=== PATIENT | male | born 1990 | race Caucasian/White ===

== ENCOUNTER 2020-01-14 00:15 | Emergency (ER) | payer OTHER, SELFPAY ==
[2020-01-14 00:18] VITALS: BP 128/75; PULSE 89; RESP 18; TEMP 36.2; O2SAT 96; BMI 38.6
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
[2020-01-14] MEDS: Acetaminophen 325 MG TABLET 975 MG PO (02:23)
[2020-01-14] MEDS: Lidocaine 4 % Patch ADH..PATCH 1 PATCH TRANSDERMA (02:24)
[2020-01-14] MEDS: Ketorolac Tromethamine 15 MG/ML VIAL IM (02:27)
--- NOTE | 2020-01-14 02:29 | PC.NURSE ---
0214: , this ticket writer and staff emergency medicine medical director at bedside. Pt reports back pain that won't let me sleep. it started today and got worse. I only had pain like this with my surgery on my leg. Can you given me something to help me sleep?. Pt educated on normal course healing. Pt denied urinary symptoms, recent trauma or any allergies. Plan is to treat patient with back strain medication. (Lido patch, im torodol, and po tyenol.) patient is in agreement with education. Pt a and o x 4. skin p/w/d. mentating well. Speech is clear and thought process is organized.
[2020-01-14 02:37] VITALS: BP 110/66; PULSE 73; RESP 18; TEMP 36.8; O2SAT 98
== END 2020-01-14 02:55 | disposition home or self-care (01) ==
PROVIDERS: Emergency Provider Student in an Organized Health Care Education/Training Program
DX: M54.5 Low back pain (principal)
CPT/HCPCS: 96372; 99284; J1885

== ENCOUNTER 2020-01-29 14:13 | Outpatient (REF) | payer OTHER, SELFPAY | END 2020-01-29 14:14 | disposition home or self-care (01) | LOC: HO.LAB 14:13 | PROVIDERS: Visit Provider Internal Medicine | DX: Z20.828 Contact with and (suspected) exposure to other viral communicable diseases (principal) | CPT/HCPCS: C9803; U0003 ==

== ENCOUNTER 2020-10-04 02:14 | Emergency (ER) | payer OTHER, SELFPAY ==
[2020-10-04 02:46] VITALS: BP 137/81; PULSE 69; RESP 16; TEMP 35.8; O2SAT 98; BMI 28.7
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
== END 2020-10-04 04:42 | disposition home or self-care (01) ==
PROVIDERS: Emergency Provider Emergency Medicine
DX: D17.0 Benign lipomatous neoplasm of skin and subcutaneous tissue of head, face and neck (principal); Z79.899 Other long term (current) drug therapy
CPT/HCPCS: 99283

== ENCOUNTER 2020-11-20 21:21 | Inpatient (IN) | payer OTHER, SELFPAY ==
[2020-11-20 21:30] VITALS: BP 142/78; PULSE 78; RESP 17; TEMP 36.9; O2SAT 98; BMI 30.4
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
[2020-11-20 22:02] LABS: Appearance Urine CLEAR; Color Urine STRAW; Glucose Urine UA NEG (NEG); Leukocyte Esterase Urine NEG (NEG); Nitrite Urine NEG (NEG); PH 7.5 (5.0-8.0); Specific Gravity - Urine 1.015 (1.005-1.025); Urine Blood NEG (NEG); Urine Ketones NEG (NEG); Urine Protein NEG (NEG-TRACE)
[2020-11-20 22:12] LABS: COVID-19 Test Negative (Negative)
[2020-11-20 22:18] LABS: Amphetamine Screen Urine Not Detected (Not Detect); Barbiturates, Urine Not Detected (Not Detect); Benzodiazepines Screen Urine Not Detected (Not Detect); Cannabinoid Screen Urine Not Detected (Not Detect); Cocaine Screen Urine Not Detected (Not Detect); Fentanyl, urine Not Detected (Not Detect); Opiate Screen Urine Not Detected (Not Detect); Phencyclidine Screen Urine Not Detected (Not Detect)
[2020-11-20 22:26] LABS: MANUAL DIFF FLAG NO
[2020-11-20 22:27] LABS: Basophils Percent Auto 0.5 % (0-2); Eosinophils Percent Auto 0.5 % (0-4); Hematocrit 41.1 % (42-52); Hemoglobin 13.4 g/dl (14.0-18.0); Imm Gran Abs Auto 0.02 X10*3/uL (0.00-0.03); Imm Gran Pct Auto 0.3 % (0.0-0.4); Lymphocytes Percent Auto 27.2 % (20-40); Mean Corpuscular HGB Conc 32.6 g/dl (31.0-36.0); Mean Corpuscular Hemoglobin 29.3 pg (27.0-33.0); Mean Corpuscular Volume 89.7 fL (80-98); Monocytes Absolute Auto 0.3 X10*3/uL (0.1-1.2); Monocytes Percent Auto 4.6 % (2-11); Neutrophils Percent Auto 66.9 % (45-73); Platelet Count 251 X10*3/uL (160-400); Red Blood Count 4.58 X10*6/uL (4.60-5.80); Red Cell Distribution Width 13.7 % (11.0-16.0); White Blood Count 7.5 X10*3/uL (4.8-10.8)
[2020-11-20] MEDS: Divalproex Sodium 500 MG TABLET.DR 1500 MG PO (22:28)
[2020-11-20] MEDS: OLANZapine 10 MG TABLET PO (22:28)
[2020-11-20 22:43] LABS: Anion Gap 14 (12-20); Blood Urea Nitrogen 20 mg/dL (9-16); Calcium 9.2 mg/dL (8.4-10.2); Carbon Dioxide 26 mmol/L (22-29); Chloride 104 mmol/L (96-108); Creatinine Clr Calc Pharmacy 89.9; Estimated Glomerular Filt Rate > 60; Glucose Random 152 mg/dL (60-115); Potassium 4.3 mmol/L (3.3-5.1); Sodium 140 mmol/L (135-145)
[2020-11-20 22:54] LABS: Valproate < 2.0 mcg/mL (50.0-100.0)
[2020-11-21 02:22] VITALS: BP 127/84; PULSE 75; RESP 17; TEMP 36.4; O2SAT 100
--- NOTE | 2020-11-21 05:34 | PC.NURSE ---
Patient slept through the night, no distress observed/reported, VSS, behavior pleasant and appropriate, medication compliant, patient was seen by N, disposition section 12 inpatient bed search, appetite good, elimination intact, VSS, will continue to monitor.
--- NOTE | 2020-11-21 07:04 | PC.NURSE ---
patient appears to remain at rest at present, breaths are even and unlabored, patient appears in no distress
[2020-11-21 09:12] VITALS: BP 133/95; PULSE 85; RESP 16; TEMP 36.9; O2SAT 100
[2020-11-21] MEDS: OLANZapine 10 MG TABLET PO ×2 (10:41→20:04)
--- NOTE | 2020-11-21 10:56 | PC.NURSE ---
patient wakes and is singing to self in room
[2020-11-21] MEDS: Divalproex Sodium 500 MG TABLET.DR 1500 MG PO (20:04)
[2020-11-21 22:59] VITALS: BP 105/53; PULSE 72; RESP 18; TEMP 36.6; O2SAT 95
[2020-11-21 23:46] VITALS: BP 140/83; PULSE 66; RESP 18; TEMP 36.2; O2SAT 100
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
[2020-11-22 07:05] VITALS: BP 132/66; PULSE 69; RESP 18; TEMP 36.4; O2SAT 100
[2020-11-22] MEDS: OLANZapine 10 MG TABLET PO ×2 (09:04→20:37)
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
[2020-11-22] MEDS: Divalproex Sodium 500 MG TABLET.DR 1500 MG PO (20:37)
[2020-11-22 21:04] VITALS: BP 138/68; PULSE 102; TEMP 36.5; O2SAT 97
[2020-11-23 06:00] VITALS: BP 136/88; PULSE 97; RESP 20; TEMP 36.3; O2SAT 99
[2020-11-23 08:14] LABS: Ammonia 27 umol/L (13-55)
[2020-11-23 08:15] LABS: Estimated Average Glucose 105 mg/dL; Hemoglobin A1c % 5.3 %
[2020-11-23] MEDS: OLANZapine 10 MG TABLET PO ×2 (08:26→19:57)
[2020-11-23 08:29] LABS: Cholesterol 174 mg/dL; HDL Cholesterol 31 mg/dL; LDL Cholesterol Calculated 104 mg/dl; Triglycerides 195 mg/dL
[2020-11-23 08:31] LABS: Alanine Aminotransferase 20 U/L (0-40); Albumin Level 4.4 g/dL (3.5-5.0); Alkaline Phosphatase 86 U/L (39-117); Aspartate Amino Transferase 14 U/L (5-37); Bilirubin Direct 0.5 mg/dL (0.0-0.5); Bilirubin Total 1.9 mg/dL (0.0-1.0); Total Protein 7.5 g/dL (6.5-8.0)
[2020-11-23 09:21] LABS: Valproate 80.7 mcg/mL (50.0-100.0)
--- NOTE | 2020-11-23 12:27 | PC.NURSE ---
Pt signed a 3 day notice, up on 11/26
[2020-11-23] MEDS: Divalproex Sodium 500 MG TABLET.DR 1500 MG PO (19:57)
--- NOTE | 2020-11-23 21:26 | P.PNPSI_ITS ---
Subjective Subjective Date of Service: 11/23/20 Reason For Visit: Psychosis Interim History: seen with YUMIKO and c web developer pt reports good mood and denies SI/HI and AVH. 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 Some more hxi noted as pt reports all kinds of childhood trauma. pt did not want to discuss further. Says medications are working well Mental Status Exam Mental Status Exam Narrative: Patient Appearance:?Appropriate Patient Orientation:?Person, Place and Time Level of Consciousness:?Awake and Appropriate Patient Behavior:?Appropriate, Cooperative, Confused and Good Eye Contact Mood Description:?Calm Affect Description:?Calm Ability to Follow Directions:?Fair Speech Pattern:?Appropriate and Spontaneous Speech Hallucinations:?None (denies) but appears internally preoccupied Delusions:?Paranoid Ideation Thought Process:?Goal Oriented Thought Content:?positive for Preoccupation (with delusional thoughts; denies SI; denies HI) Judgement and Insight:?impaired Diagnostics Vital Signs (24Hr): Vital Signs - 24 hr 11/23/20 06:00 Temperature 97.4 F Pulse Rate 97 Respiratory Rate 20 Blood Pressure 136/88 Pulse Oximetry 99 Body Mass Index 30.4 Labs Results: 11/20/20 22:22 11/20/20 22:22 Labs: Laboratory Results - last 48 hr 11/23/20 11/23/20 11/23/20 07:54 07:54 07:54 Estimat Average Glucose 105 Hemoglobin A1c % 5.3 Total Bilirubin 1.9 H Direct Bilirubin 0.5 AST 14 ALT 20 Alkaline Phosphatase 86 Ammonia Total Protein 7.5 Albumin 4.4 Triglycerides 195 Cholesterol 174 LDL Cholesterol, Calc 104 HDL Cholesterol 31 Valproic Acid 80.7 11/23/20 07:54 Estimat Average Glucose Hemoglobin A1c % Total Bilirubin Direct Bilirubin AST ALT Alkaline Phosphatase Ammonia 27 Total Protein Albumin Triglycerides Cholesterol LDL Cholesterol, Calc HDL Cholesterol Valproic Acid Medications Medications Current Medications Acetaminophen (Acetaminophen 325 Mg Tablet) 650 mg PO Q6H PRN PRN Reason: Headache/Pain Mild Scale (1-3) Al Hydroxide/Mg Hydroxide (Magnesium Hydrox/Alum Hydrox 30 Ml Oral.Susp) 30 ml PO Q6H PRN PRN Reason: Heartburn/Nausea Divalproex Sodium (Divalproex Sodium 500 Mg Tablet.Dr) 1,500 mg PO BEDTIME [facility] Last Admin: 11/23/20 19:57 Dose: 1,500 mg Documented by: Hydroxyzine HCl (Hydroxyzine Hcl 25 Mg Tablet) 25 mg PO Q6H PRN PRN Reason: Anxiety Lorazepam (Lorazepam 1 Mg Tablet) 2 mg PO Q4H PRN PRN Reason: agitation Magnesium Hydroxide (Milk Of Magnesia 30 Ml Oral.Susp) 30 ml PO DAILY PRN PRN Reason: Constipation Nicotine Polacrilex (Nicotine Polacrilex 2 Mg Gum) 4 mg BUCCAL Q2H PRN PRN Reason: Nicotine Cravings Olanzapine (Olanzapine 10 Mg Tablet) 10 mg PO BID [facility] Last Admin: 11/23/20 19:57 Dose: 10 mg Documented by: Olanzapine (Olanzapine 5 Mg Tablet) 5 mg PO Q4H PRN PRN Reason: agitation/psychosis Trazodone HCl (Trazodone Hcl 50 Mg Tablet) 50 mg PO BEDTIME PRN PRN Reason: Insomnia Allergies Allergies Allergy/AdvReac Type Severity Reaction Status Date / Time haloperidol [From HALDOL] AdvReac Severe Dystonia Verified 01/14/20 00:29 Assessment & Plan Assessment & Plan (1) Schizophrenia, chronic condition: Status: Chronic Code(s): F20.9 - Schizophrenia, unspecified (2) TBI (traumatic brain injury): Status: Suspected Code(s): S06.9X9A - Unspecified intracranial injury with loss of consciousness of unspecified duration, initial encounter Assessment and Plan: IMPRESSION: pt is a 30 yo male with hx of schizophrenia and TBI, who lives with his mother and presents after she called 911 for patients worsening psychotic symptoms in face of going off medications. -currently delusional; denies AH but appears internally preoccupied -will restart home medications as depakote level indicates has not been taking pt calm but delusional; crisis note reports agitation directed at mother; will get collateral to determine baseline plan: cv q15 min continue home meds lfts: wnl depakote level:therapeutic mother for collateral Greater than 50% of the session was spent on counseling and/or coordination of care Reason for contiued inpatient stay Substantial Risk for: med/psych decompensation
[2020-11-24 06:00] VITALS: BP 136/73; PULSE 98; RESP 16; TEMP 35.8; O2SAT 100
[2020-11-24] MEDS: OLANZapine 10 MG TABLET PO ×2 (08:48→20:15)
--- NOTE | 2020-11-24 13:38 | P.PNPSI_ITS ---
Subjective Subjective Date of Service: 11/24/20 Reason For Visit: Psychosis Subjective Notes: 3 Day Interim History: Patient reports that he is in a good mood, eating and sleeping well and denies any SI or HI saying only wants to was help people. He also continues to deny auditory hallucinations. Electron Gun Assembler probed some more of the potential reasons for his admissions and that his mother reported he was agitated toward her. Patient agreed that it is true that he got a little angry and broke some stuff, papers and books. Patient later retracted this and saying that that is what he does when he gets angry, but that this did not happen in the previous weeks. Patient gave fiction and nonfiction writer prose permission to talk to his mother Latosha and gave the phone number [phone] (gave verbal permission in front of 2 other witnesses). Mental Status Exam Mental Status Exam Narrative: Patient Appearance:?Appropriate Patient Orientation:?Person, Place and Time Level of Consciousness:?Awake and Appropriate Patient Behavior:?Appropriate, Cooperative and Good Eye Contact Mood Description:?Calm Affect Description:?Calm Ability to Follow Directions:?Fair Speech Pattern:?Appropriate and Spontaneous Speech Hallucinations:?None (denies) but appears internally preoccupied Delusions:?Paranoid Ideation Thought Process:?Goal Oriented Thought Content:?positive for Preoccupation (with delusional thoughts; denies SI; denies HI) Judgment and Insight:?impaired Diagnostics Vital Signs (24Hr): Vital Signs - 24 hr 11/24/20 06:00 Temperature 96.4 F L Pulse Rate 98 Respiratory Rate 16 Blood Pressure 136/73 Pulse Oximetry 100 Body Mass Index 30.4 Labs Results: 11/20/20 22:22 11/20/20 22:22 Labs: Laboratory Results - last 48 hr 11/23/20 11/23/20 11/23/20 07:54 07:54 07:54 Estimat Average Glucose 105 Hemoglobin A1c % 5.3 Total Bilirubin 1.9 H Direct Bilirubin 0.5 AST 14 ALT 20 Alkaline Phosphatase 86 Ammonia Total Protein 7.5 Albumin 4.4 Triglycerides 195 Cholesterol 174 LDL Cholesterol, Calc 104 HDL Cholesterol 31 Valproic Acid 80.7 11/23/20 07:54 Estimat Average Glucose Hemoglobin A1c % Total Bilirubin Direct Bilirubin AST ALT Alkaline Phosphatase Ammonia 27 Total Protein Albumin Triglycerides Cholesterol LDL Cholesterol, Calc HDL Cholesterol Valproic Acid Medications Medications Current Medications Acetaminophen (Acetaminophen 325 Mg Tablet) 650 mg PO Q6H PRN PRN Reason: Headache/Pain Mild Scale (1-3) Al Hydroxide/Mg Hydroxide (Magnesium Hydrox/Alum Hydrox 30 Ml Oral.Susp) 30 ml PO Q6H PRN PRN Reason: Heartburn/Nausea Divalproex Sodium (Divalproex Sodium 500 Mg Tablet.) 1,500 mg PO BEDTIME [facility] Last Admin: 11/23/20 19:57 Dose: 1,500 mg Documented by: Hydroxyzine HCl (Hydroxyzine Hcl 25 Mg Tablet) 25 mg PO Q6H PRN PRN Reason: Anxiety Lorazepam (Lorazepam 1 Mg Tablet) 2 mg PO Q4H PRN PRN Reason: agitation Magnesium Hydroxide (Milk Of Magnesia 30 Ml Oral.Susp) 30 ml PO DAILY PRN PRN Reason: Constipation Nicotine Polacrilex (Nicotine Polacrilex 2 Mg Gum) 4 mg BUCCAL Q2H PRN PRN Reason: Nicotine Cravings Olanzapine (Olanzapine 10 Mg Tablet) 10 mg PO BID [facility] Last Admin: 11/24/20 08:48 Dose: 10 mg Documented by: Olanzapine (Olanzapine 5 Mg Tablet) 5 mg PO Q4H PRN PRN Reason: agitation/psychosis Trazodone HCl (Trazodone Hcl 50 Mg Tablet) 50 mg PO BEDTIME PRN PRN Reason: Insomnia Allergies Allergies Allergy/AdvReac Type Severity Reaction Status Date / Time haloperidol [From HALDOL] AdvReac Severe Dystonia Verified 01/14/20 00:29 Assessment & Plan Assessment & Plan (1) Schizophrenia, chronic condition: Status: Chronic Code(s): F20.9 - Schizophrenia, unspecified (2) TBI (traumatic brain injury): Status: Suspected Code(s): S06.9X9A - Unspecified intracranial injury with loss of consciousness of unspecified duration, initial encounter Assessment and Plan: IMPRESSION: pt is a 30 yo male with hx of schizophrenia and TBI, who lives with his mother and presents after she called 911 for patients worsening psychotic symptoms in face of going off medications. -currently delusional; denies AH but appears internally preoccupied -will restart home medications as depakote level indicates has not been taking pt calm but delusional; crisis note reports agitation directed at mother; will get collateral to determine baseline plan: 3 day notice due 11/26 q15 min continue home meds lfts: wnl depakote level:therapeutic mother for collateral Greater than 50% of the session was spent on counseling and/or coordination of care Reason for contiued inpatient stay Substantial Risk for: med/psych decompensation
[2020-11-24 16:35] VITALS: BP 134/78; PULSE 94; TEMP 36.8
[2020-11-24] MEDS: Divalproex Sodium 500 MG TABLET.DR 1500 MG PO (20:15)
[2020-11-25 06:00] VITALS: BP 132/84; PULSE 99; RESP 16; TEMP 36.3; O2SAT 97
[2020-11-25] MEDS: OLANZapine 10 MG TABLET PO ×2 (09:03→21:10)
--- NOTE | 2020-11-25 11:11 | P.PNPSI_ITS ---
Subjective Subjective Date of Service: 11/25/20 Reason For Visit: Psychosis Interim History: pt reports good mood and looking forward to discharge tomorrow (3 day notice due 11/26). He denies SI/HI or any AVH. Pt reiterates he is only focused on helping people. 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 One invention is a wallet, to clip all things in it. -no longer worried that his mother will taint his food and is now skeptical that she was doing it in first place, thinking he may have accidentally blamed her. -aligner typewriter asked about past delusional thoughts expressed at other admissions, specifically about space travel to which pt said everything is based on numbers...every thing in the universe is based on numbers... He denies anything about space travel but says he's studied and knows about different planets and facts about them (accurately names some). SW talked to patients mother who says she has no fears for her safety from patient or any concerns that he'd hurt himself. He was off his meds and blaming her for breaking up with his girlfriend; since off his meds, she wanted to make sure he got help before his mood escalated. She says if he's back on his meds he is fine to come home this week. Mental Status Exam Mental Status Exam Narrative: Patient Appearance:?Appropriate Patient Orientation:?Person, Place and Time Level of Consciousness:?Awake and Appropriate Patient Behavior:?Appropriate, Cooperative and Good Eye Contact Mood Description:? good Affect Description:?Calm Ability to Follow Directions:?Fair Speech Pattern:?Appropriate and Spontaneous Speech Hallucinations:?None (denies) but appears internally preoccupied Delusions:?some Paranoid Ideations Thought Process:?Goal Oriented Thought Content:? on helping people, getting a someday; denies SI; denies HI Judgment and Insight:?impaired but appears to be at baseline Diagnostics Vital Signs (24Hr): Vital Signs - 24 hr 11/24/20 16:35 11/25/20 06:00 Temperature 98.2 F 97.4 F Pulse Rate 94 99 Respiratory Rate 16 Blood Pressure 134/78 132/84 Pulse Oximetry 97 Body Mass Index 30.4 Labs Results: 11/20/20 22:22 11/20/20 22:22 Medications Medications Current Medications Acetaminophen (Acetaminophen 325 Mg Tablet) 650 mg PO Q6H PRN PRN Reason: Headache/Pain Mild Scale (1-3) Al Hydroxide/Mg Hydroxide (Magnesium Hydrox/Alum Hydrox 30 Ml Oral.Susp) 30 ml PO Q6H PRN PRN Reason: Heartburn/Nausea Divalproex Sodium (Divalproex Sodium 500 Mg Tablet.) 1,500 mg PO BEDTIME [facility] Last Admin: 11/24/20 20:15 Dose: 1,500 mg Documented by: Hydroxyzine HCl (Hydroxyzine Hcl 25 Mg Tablet) 25 mg PO Q6H PRN PRN Reason: Anxiety Lorazepam (Lorazepam 1 Mg Tablet) 2 mg PO Q4H PRN PRN Reason: agitation Magnesium Hydroxide (Milk Of Magnesia 30 Ml Oral.Susp) 30 ml PO DAILY PRN PRN Reason: Constipation Nicotine Polacrilex (Nicotine Polacrilex 2 Mg Gum) 4 mg BUCCAL Q2H PRN PRN Reason: Nicotine Cravings Olanzapine (Olanzapine 10 Mg Tablet) 10 mg PO BID [facility] Last Admin: 11/25/20 09:03 Dose: 10 mg Documented by: Olanzapine (Olanzapine 5 Mg Tablet) 5 mg PO Q4H PRN PRN Reason: agitation/psychosis Trazodone HCl (Trazodone Hcl 50 Mg Tablet) 50 mg PO BEDTIME PRN PRN Reason: Insomnia Allergies Allergies Allergy/AdvReac Type Severity Reaction Status Date / Time haloperidol [From HALDOL] AdvReac Severe Dystonia Verified 01/14/20 00:29 Assessment & Plan Assessment & Plan (1) Schizophrenia, chronic condition: Status: Chronic Code(s): F20.9 - Schizophrenia, unspecified (2) TBI (traumatic brain injury): Status: Suspected Code(s): S06.9X9A - Unspecified intracranial injury with loss of consciousness of unspeci fied duration, initial encounter Assessment and Plan: IMPRESSION: pt is a 30 yo male with hx of schizophrenia and TBI, who lives with his mother and presents after she called 911 for patients worsening psychotic symptoms in face of going off medications. -currently delusional; denies AH but appears internally preoccupied -will restart home medications as depakote level indicates has not been taking pt calm but delusional; crisis note reports agitation directed at mother; will get collateral to determine baseline -collateral from mother obtained who says patient is back to baseline and fine to come home; she denies he is at any risk for hurting others or himself. She says once back on his medications he can return home. Pt has remained calm, pleasant with reported good mood and w/out any SI/HI or AVH. He is no longer worried that his mother will put hair in food. It is likely that he still has some paranoid thinking, but this appears to be part of his baseline presentations. pt is not in imminent risk of harm to self or others and does not meet criteria for involuntary commitment. He outpt services already established and is returning to his supportive mother with whom he lives. He also is now signed up to make application for [facility] and [facility] services plan: 3 day notice due 11/26 will proceed with discharge. q15 min continue home meds lfts: wnl depakote level:therapeutic Greater than 50% of the session was spent on counseling and/or coordination of care Reason for contiued inpatient stay Substantial Risk for: stable for discharge
--- NOTE | 2020-11-25 11:31 | PM.PSYDC ---
DS: Providers Provider Date of Service: 11/26/20 Date of admission: 11/21/20 23:23 Date of discharge: 11/26/20 Primary care physician: Unknown Physician Attending physician on admission: Tc Maldonado Attending physician on discharge: Tc Maldonado DS: Diagnosis Discharge Diagnosis (1) Schizophrenia, chronic condition: Status: Chronic (2) TBI (traumatic brain injury): Status: Suspected DS: Medications Discharge Medications Home Medications: Home Medications Medication Instructions Recorded Confirmed divalproex 500 mg tablet,delayed 3 tab PO BEDTIME 11/20/20 11/20/20 release olanzapine 10 mg tablet 1 tab PO BID 11/20/20 11/20/20 Mental Status Exam Mental Status Exam Narrative: Patient Appearance:?Appropriate Patient Orientation:?Person, Place and Time Level of Consciousness:?Awake and Appropriate Patient Behavior:?Appropriate, Cooperative and Good Eye Contact Mood Description:? good Affect Description:?Calm Ability to Follow Directions:?Fair Speech Pattern:?Appropriate and Spontaneous Speech Hallucinations:?None (denies) but appears internally preoccupied Delusions:?none expressed Thought Process:?Goal Oriented Thought Content:? on helping people, going home; denies SI; denies HI Judgment and Insight: adequate; appears to be at baseline Data Data Completed and Pending Completed studies during hospitalization [Text1]: 11/20/20 11/20/20 11/20/20 21:50 21:50 21:50 WBC RBC Hgb Hct MCV MCH MCHC RDW Plt Count MPV Immature Gran % (Auto) Neut % (Auto) Lymph % (Auto) [place] % (Auto) Eos % (Auto) Baso % (Auto) Lymph # (Auto) [place] # (Auto) Eos # (Auto) Baso # (Auto) Abs Immat Gran (auto) Absolute Neuts (auto) Absolute Nucleated RBC Nucleated RBC % (auto) Sodium Potassium Chloride Carbon Dioxide Anion Gap BUN Creatinine Estim Creat Clear Calc Estimated GFR Random Glucose Estimat Average Glucose Hemoglobin A1c % Calcium Total Bilirubin Direct Bilirubin AST ALT Alkaline Phosphatase [place] Total Protein Albumin Triglycerides Cholesterol LDL Cholesterol, Calc HDL Cholesterol Urine Color STRAW Urine Appearance CLEAR Urine pH 7.5 Ur Specific [place] 1.015 Urine Protein NEG Urine Glucose (UA) NEG Urine Ketones NEG Urine Blood NEG Urine Nitrite NEG Ur Leukocyte Esterase NEG Urine Opiates Screen Not Detected Urine Fentanyl Screen Not Detected Ur Barbiturates Screen Not Detected Valproic Acid Ur Phencyclidine Scrn Not Detected Ur Amphetamines Screen Not Detected U Benzodiazepines Scrn Not Detected Urine Cocaine Screen Not Detected U Marijuana (THC) Screen Not Detected COVID-19 (ANIL) Negative COVID-19 SupplyFrame Com See Note 11/20/20 11/20/20 11/20/20 22:22 22:22 22:22 WBC 7.5 RBC 4.58 L Hgb 13.4 L Hct 41.1 L MCV 89.7 MCH 29.3 MCHC 32.6 RDW 13.7 Plt Count 251 MPV 10.0 Immature Gran % (Auto) 0.3 Neut % (Auto) 66.9 Lymph % (Auto) 27.2 [place] % (Auto) 4.6 Eos % (Auto) 0.5 Baso % (Auto) 0.5 Lymph # (Auto) 2.0 [place] # (Auto) 0.3 Eos # (Auto) 0.0 Baso # (Auto) 0.0 Abs Immat Gran (auto) 0.02 Absolute Neuts (auto) 5.0 Absolute Nucleated RBC 0.000 Nucleated RBC % (auto) 0.0 Sodium 140 Potassium 4.3 Chloride 104 Carbon Dioxide 26 Anion Gap 14 BUN 20 H Creatinine 1.29 Estim Creat Clear Calc 89.9 Estimated GFR > 60 Random Glucose 152 H Estimat Average Glucose Hemoglobin A1c % Calcium 9.2 Total Bilirubin Direct Bilirubin AST ALT Alkaline Phosphatase [place] Total Protein Albumin Triglycerides Cholesterol LDL Cholesterol, Calc HDL Cholesterol Urine Color Urine Appearance Urine pH Ur Specific [place] Urine Protein Urine Glucose (UA) Urine Ketones Urine Blood Urine Nitrite Ur Leukocyte Esterase Urine Opiates Screen Urine Fentanyl Screen Ur Barbiturates Screen Valproic Acid < 2.0 L Ur Phencyclidine Scrn Ur Amphetamines Screen U Benzodiazepines Scrn Urine Cocaine Screen U Marijuana (THC) Screen COVID-19 (ANIL) COVID-19 SupplyFrame Com 11/23/20 11/23/20 11/23/20 07:54 07:54 07:54 WBC RBC Hgb Hct MCV MCH MCHC RDW Plt Count MPV Immature Gran % (Auto) Neut % (Auto) Lymph % (Auto) [place] % (Auto) Eos % (Auto) Baso % (Auto) Lymph # (Auto) [place] # (Auto) Eos # (Auto) Baso # (Auto) Abs Immat Gran (auto) Absolute Neuts (auto) Absolute Nucleated RBC Nucleated RBC % (auto) Sodium Potassium Chloride Carbon Dioxide Anion Gap BUN Creatinine Estim Creat Clear Calc Estimated GFR Random Glucose Estimat Average Glucose 105 Hemoglobin A1c % 5.3 Calcium Total Bilirubin 1.9 H Direct Bilirubin 0.5 AST 14 ALT 20 Alkaline Phosphatase 86 Ammonia Total Protein 7.5 Albumin 4.4 Triglycerides 195 Cholesterol 174 LDL Cholesterol, Calc 104 HDL Cholesterol 31 Urine Color Urine Appearance Urine pH Ur Specific [place] Urine Protein Urine Glucose (UA) Urine Ketones Urine Blood Urine Nitrite Ur Leukocyte Esterase Urine Opiates Screen Urine Fentanyl Screen Ur Barbiturates Screen Valproic Acid 80.7 Ur Phencyclidine Scrn Ur Amphetamines Screen U Benzodiazepines Scrn Urine Cocaine Screen U Marijuana (THC) Screen COVID-19 (ANIL) COVID-19 SupplyFrame Com 11/23/20 07:54 WBC RBC Hgb Hct MCV MCH MCHC RDW Plt Count MPV Immature Gran % (Auto) Neut % (Auto) Lymph % (Auto) [place] % (Auto) Eos % (Auto) Baso % (Auto) Lymph # (Auto) [place] # (Auto) Eos # (Auto) Baso # (Auto) Abs Immat Gran (auto) Absolute Neuts (auto) Absolute Nucleated RBC Nucleated RBC % (auto) Sodium Potassium Chloride Carbon Dioxide Anion Gap BUN Creatinine Estim Creat Clear Calc Estimated GFR Random Glucose Estimat Average Glucose Hemoglobin A1c % Calcium Total Bilirubin Direct Bilirubin AST ALT Alkaline Phosphatase [place] 27 Total Protein Albumin Triglycerides Cholesterol LDL Cholesterol, Calc HDL Cholesterol Urine Color Urine Appearance Urine pH Ur Specific [place] Urine Protein Urine Glucose (UA) Urine Ketones Urine Blood Urine Nitrite Ur Leukocyte Esterase Urine Opiates Screen Urine Fentanyl Screen Ur Barbiturates Screen Valproic Acid Ur Phencyclidine Scrn Ur Amphetamines Screen U Benzodiazepines Scrn Urine Cocaine Screen U Marijuana (THC) Screen COVID-19 (ANIL) COVID-19 Clin Com DS: Summary Hospital Course Hospital Course: pt is a 30 yo male with hx of schizophrenia and TBI, who lives with his mother and presents after she called 911 for patients worsening psychotic symptoms in face of going off medications. On admission, pt calm, friendly and cooperative, in good mood and in good behavioral control. -signed CV but soon signed 3day -denies AH though intermittently appeared internally preoccupied; delusion that mom tainting his food; said he was taking his medications but depakote level on admission indicates he has not been -pt restarted on home med regimen and depakote level theraeuptic and associated labs WNL -remained calm and cooperative, sleeping and eating well, denying any SI/HI or AVH. No other delusional content expressed and thoughts that mom was tampering with his food resolved and he no longer thought so. -collateral from mother obtained who says patient is back to baseline and fine to come home; she denies he is at any risk for hurting others or himself. She says once back on his medications he can return home. Pt has remained calm, pleasant with reported good mood and w/out any SI/HI or AVH.? Patients 3 day notice due on 11/26 and he appears to be at baseline and has demonstrated good behavioral and impulse control throughout admission. It is possible that he still has some paranoid thinking that was not uncovered but none other was expressed; it also seems from history that at baseline, pt intermittently has some delusional thoughts. Patient is not in imminent risk of harm to self or others; he is taking medications that are helpful and well tolerated and does not meet criteria for involuntary commitment. He has outpt services already established and is returning to his supportive mother with whom he lives and is welcoming him home. He also is now signed up to make application for [facility] and [facility] services. His request for discharge honored. Status at Discharge Functional status at discharge: independent ambulation Overall status at discharge: patient is back to baseline Time Spent with Patient Time attestation: Total time spent providing and/or coordinating discharge services: Time spent: Less than 30 minutes Discharge Plan Discharge Patient Disposition: Home, Self-Care Discharge Diagnosis: Schizophrenia, paranoid type Referrals: Alex Faulkner (therapists) [Other] - 11/27/20 3:45 pm (Appointment scheduled with Alex Granda for Monday11/27/20 @ 3:45 PM via the phone telehealth.) Dr. Stephane Orellana (psychiatrists) [Other] - 12/18/20 1:40 pm (Appointment scheduled with Dr. Orellana on 12/18/20 @ 1:40 PM via phone/telehealth. FAX # [phone]) Physician,Unknown J [Primary Care Provider] - 1 Week Discharge Medications: Changed olanzapine 10 mg tablet 10 mg PO BID 30 Days Qty: 60 RF: 0 divalproex 500 mg tablet,delayed release (/EC) 1,500 mg PO BEDTIME 30 Days Qty: 90 RF: 0 Discharge Orders: Discharge Order (Routine); Ordered 11/26/20 Ordered By: Tc Maldonado Diet: regular diet Activity on Discharge: As tolerated Stand Alone Forms: Patient Portal Discharge page Care Plan Goals: Maintain mood and safe behaviors Take medications as prescribed Continue to pursue hobies Practice coping skills Continue with outpatient providers and reach out to them as needed Health Concerns: Mood stability and behaviors Plan of Treatment: Follow up with your psychiatric provider and other outpatient providers regarding above concerns Take medications as prescribed Assessment: Risk assessment at time of discharge:? Patient was interviewed prior to discharge and found to be fully oriented and without any SI or HI. Patient has insight and demonstrates good judgment in terms of wanting to pursue treatment. Patient is not in imminent risk of harm to self or others and has a safety plan that includes presenting to the closest ER or calling 911 if feeling unsafe.? Patient has been observed closely by nursing and unit staff throughout admission; patient has not engaged in any behaviors that suggest dangerousness to self or others and has demonstrated appropriate behaviors and impulse control
[2020-11-25 18:00] VITALS: BP 118/77; PULSE 76
[2020-11-25] MEDS: Divalproex Sodium 500 MG TABLET.DR 1500 MG PO (21:10)
[2020-11-26 06:00] VITALS: BP 140/76; PULSE 97; RESP 18; TEMP 36.5; O2SAT 96
[2020-11-26] MEDS: OLANZapine 10 MG TABLET PO (08:58)
== END 2020-11-26 10:50 | disposition home or self-care (01) | DRG 750 ==
LOC: HO.ED 11-21 22:50 → HO.PM5 11-21 23:29
PROVIDERS: Admitting Provider Psychiatry & Neurology Psychiatry; Emergency Provider Emergency Medicine; Visit Provider Psychiatry & Neurology Psychiatry
DX: F20.9 Schizophrenia, unspecified (principal); Z20.822 Contact with and (suspected) exposure to COVID-19; Z87.820 Personal history of traumatic brain injury; Z79.899 Other long term (current) drug therapy
CPT/HCPCS: 36415; 80048; 80061; 80076; 80164; 80307; 81003; 82140; 83036; 85025; 87635; 99285

== ENCOUNTER 2021-04-22 21:03 | Emergency (ER) | payer OTHER, SELFPAY ==
--- NOTE | ~2021-04-22 | XR_ITS ---
EXAMINATION: XR CHEST CLINICAL INFORMATION: Fevers, chills and cough COMPARISON: 09/01/2019 TECHNIQUE: 2 views of the chest were obtained. FINDINGS: No significant abnormality is noted involving the heart, lungs, mediastinum, bony thorax or soft tissues. Since the prior study, variously, the patient has been extubated and NG tube has been there are fixation changes in the lumbar sacral spine with pedicular screws. XR/XR chest 2V IMPRESSION: Unremarkable examination. No acute intrathoracic disease.
--- NOTE | ~2021-04-22 | CT_ITS ---
EXAMINATION: CT ABDOMEN AND PELVIS WITHOUT CONTRAST CLINICAL INFORMATION: Back pain. Left flank pain radiating into the groin. COMPARISON: CT scan of the abdomen and pelvis 09/01/2019. TECHNIQUE: Multidetector volumetric imaging was performed from the superior aspect of the liver through the pubic symphysis. Sagittal and coronal reformatted images were obtained on the technologist's workstation. This CT examination was performed using dose optimization techniques as appropriate, variously including the following: *Automated exposure control *Adjustment of mA and/or kV according to patient size (this includes techniques or standardized protocols for targeted exams where dose is matched to indication/reason for exam; i.e. extremities or head) *Use of iterative reconstruction technique DLP: 1056 mGy-cm FINDINGS: LUNG BASES: The visualized lung bases are unremarkable. LIVER, GALLBLADDER, AND BILIARY TREE: The liver is normal in size, shape, and attenuation. No focal hepatic lesion or biliary ductal dilatation is present. The gallbladder is decompressed and otherwise unremarkable. PANCREAS: Unremarkable. SPLEEN: Unremarkable. ADRENAL GLANDS: Unremarkable. KIDNEYS AND URETERS: There is a well marginated focus of hypoattenuation within the left kidney that has remained stable when compared to prior CT imaging from 09/01/2019. Otherwise no nephrolithiasis or perinephric inflammation. BLADDER: Unremarkable. GASTROINTESTINAL TRACT: The small and large bowel are unremarkable. The appendix is unremarkable. ABDOMINAL WALL: There is a fat-containing umbilical hernia. Abdominal wall is otherwise intact. LYMPH NODES: No pathologically enlarged lymph nodes within the [id number] of this examination. VASCULAR: Unremarkable. PELVIC VISCERA: Unremarkable. OSSEOUS STRUCTURES: There are chronic postoperative changes of a spinal fusion with a transpedicular hardware construct extending from T12 to L1. There is a rim of lucency surrounding both L1 nerve roots, greater on the left. There is also a new narrow margin of lucency surrounding the left T12 transpedicular screw. CT/CT abdomen pelvis wo con IMPRESSION: There is hardware loosening or infection associated with the transpedicular screws at T12-L1. Spinal alignment is otherwise intact. Incidentally there is a small fat-containing umbilical hernia. This finding has remained grossly stable when compared to prior CT imaging from 08/31/2019.
[2021-04-22 21:10] VITALS: BP 140/80; PULSE 120; O2SAT 96
[2021-04-22 21:16] VITALS: BP 129/83; PULSE 113; RESP 16; TEMP 37; O2SAT 95; BMI 30.1
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
[2021-04-22] MEDS: Cyclobenzaprine HCl 10 MG TABLET PO (22:42)
[2021-04-22] MEDS: 0.9 % Sodium Chloride 1,000 ML 999 ML IV (22:43)
[2021-04-22] MEDS: Ketorolac Tromethamine 15 MG/ML VIAL IVPUSH (22:43)
[2021-04-22 22:44] LABS: MANUAL DIFF FLAG NO
[2021-04-22 22:47] LABS: Basophils Percent Auto 0.3 % (0-2); Eosinophils Percent Auto 0.6 % (0-4); Hematocrit 41.5 % (42.0-52.0); Hemoglobin 13.4 g/dl (14.0-18.0); Imm Gran Abs Auto 0.03 X10*3/uL (0.00-0.03); Imm Gran Pct Auto 0.4 % (0.0-0.4); Lymphocytes Absolute Auto 2.4 X10*3/uL (1.2-4.9); Lymphocytes Percent Auto 32.9 % (20-40); Mean Corpuscular HGB Conc 32.3 g/dl (31.0-36.0); Mean Corpuscular Hemoglobin 29.5 pg (27.0-33.0); Mean Corpuscular Volume 91.4 fL (80.0-98.0); Mean Platelet Volume 10.1 fL (9.4-12.4); Monocytes Absolute Auto 0.6 X10*3/uL (0.1-1.2); Monocytes Percent Auto 8.4 % (2-11); Neutrophils Absolute Auto 4.1 x10*3/uL (2.0-8.3); Neutrophils Percent Auto 57.4 % (45-73); Platelet Count 239 X10*3/uL (160-400); Red Blood Count 4.54 X10*6/uL (4.60-5.80); Red Cell Distribution Width 14.8 % (11.0-16.0); White Blood Count 7.1 X10*3/uL (4.8-10.8)
[2021-04-22 23:03] LABS: COVID-19 Test Negative (Negative); Lactic Acid 2.2 mmol/L (0.5-2.0)
[2021-04-22 23:05] LABS: Alanine Aminotransferase 62 U/L (0-40); Albumin Level 4.2 g/dL (3.5-5.0); Alkaline Phosphatase 64 U/L (39-117); Anion Gap 15 (12-20); Aspartate Amino Transferase 41 U/L (5-37); Bilirubin Total 1.4 mg/dL (0.0-1.0); Blood Urea Nitrogen 14 mg/dL (9-16); C Reactive Protein 0.25 mg/dL (< or = 0.50); Calcium 9.4 mg/dL (8.4-10.2); Carbon Dioxide 27 mmol/L (22-29); Chloride 102 mmol/L (96-108); Creatinine Clr Calc Pharmacy 122.8; Estimated Glomerular Filt Rate > 60; Glucose Random 127 mg/dL (60-115); Lipase 32 U/L (8-78); Potassium 4.6 mmol/L (3.3-5.1); Sodium 139 mmol/L (135-145); Total Protein 7.8 g/dL (6.5-8.0)
[2021-04-22 23:27] LABS: Erythrocyte Sedimentation Rate 4 MM/HR (0-15)
[2021-04-22 23:55] VITALS: BP 126/75; PULSE 90; RESP 15; TEMP 36.8; O2SAT 92
[2021-04-23 00:42] LABS: Reflex Lactate? Lactic Acid Added
[2021-04-23 03:25] VITALS: RESP 16
[2021-04-23 03:44] VITALS: BP 115/66; PULSE 77; RESP 20; O2SAT 93
--- NOTE | 2021-04-23 03:45 | PC.NURSE ---
pt is a obs pt, d/c 2nd lactic acid per provider dr alexander. pt is arrousable, sleeping mostly unless arroused.
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
--- NOTE | 2021-04-23 08:55 | MHC.CM.ED ---
Received case management consult overnight. Patient was already seen by Care team and discharged home before being seen by case management.
== END 2021-04-23 08:46 | disposition home or self-care (01) ==
PROVIDERS: Emergency Provider Emergency Medicine Emergency Medical Services
DX: M54.6 Pain in thoracic spine (principal); R06.02 Shortness of breath; R05.9 Cough, unspecified; Z20.822 Contact with and (suspected) exposure to COVID-19
CPT/HCPCS: 36415; 71046; 74176; 80053; 83605; 83690; 85025; 85652; 86140; 87040; 87635; 96361; 96374; 99284; J1885

== ENCOUNTER 2021-09-07 16:39 | Emergency (ER) | payer OTHER, SELFPAY ==
[2021-09-07 18:45] VITALS: BP 151/91; PULSE 98; RESP 18; TEMP 36.1; O2SAT 95; BMI 46.9
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
== END 2021-09-07 19:35 | disposition home or self-care (01) ==
PROVIDERS: Emergency Provider Emergency Medicine
DX: L73.9 Follicular disorder, unspecified (principal); R21 Rash and other nonspecific skin eruption
CPT/HCPCS: 99282